=== PATIENT | female | born 1970 | race Caucasian/White ===

== ENCOUNTER 2018-06-11 21:46 | Emergency (ER) | payer BC ==
[2018-06-11 22:19] VITALS: BP 162/68
--- NOTE | 2018-06-11 22:46 | ED Physician Documentation ---
General Adult - HISTORIAN Historian: patient - HPI Stated Complaint: Dizziness Chief Complaint: General Adult Further Comments: yes (48 year old female patient presents with complains of nausea and diarrhea; ears feeling full, dizziness. Patient has been on Augmentin for 2 days for a sinus infection. Reports GI symptoms started 2 days ago. C/O left arm discomfort for the past few months.) - ROS CONST: recent illness (sinus infection) EYES/ENT: sore throat, nasal drainage, nasal congestion, other (ear ache) CVS/RESP: none GI/: nausea, diarrhea. denies: abdominal pain, problems urinating, vomiting MS/SKIN/LYMPH: none NEURO/PSYCH: headache. denies: anxiety, depression - PAST HX Past History: hypertension Other History: diabetes Type 2, other (hypothyroidism) Allergies/Adverse Reactions: Allergies Allergy/AdvReac Type Severity Reaction Status Date / Time No Known Allergies Allergy Verified 06/11/18 22:20 Home Medications: Ambulatory Orders Medication Instructions Recorded Levofloxacin [Levaquin] 500 mg PO DAILY #10 tablet 06/11/18 Levothyroxine Sodium [Synthroid] 1 tab PO DAILY 06/11/18 Lisinopril [Zestril] 1 tab PO DAILY 06/11/18 Metformin HCl [Glucophage] 1 tab PO BID 06/11/18 Metoprolol Tartrate [Lopressor] 1 tab PO DAILY 06/11/18 Pioglitazone HCl [Actos] 1 tab PO DAILY 06/11/18 Pioglitazone HCl [Actos] 1 tab PO DAILY 06/11/18 gliPIZIDE [Glucotrol] 1 tab PO DAILY 06/11/18 - SOCIAL HX Smoking History: non-smoker - FAMILY HX Family History: No - VITAL SIGNS Vital Signs: Vital Signs Temp Pulse Resp BP Pulse Ox 96.8 F L 87 16 162/68 98 06/11/18 22:32 06/11/18 22:32 06/11/18 22:32 06/11/18 22:32 06/11/18 22:32 - REVIEWED ASSESSMENTS Nursing Assessment Reviewed: Yes Vitals Reviewed: Yes Progress - Progress Progress: Will stop augmentin; patient not tolerating the GI side effects ED Results Lab/Radiology - Orders Orders: ED Orders Category Date Time Status Chem Sticks Med 06/11/18 22:00 Discontinued 1 each PRN General Adult Physical Exam - PHYSICAL EXAM GENERAL APPEARANCE: mild distress EENT: eye inspection normal, pharynx normal, no signs of dehydration, KELVIN, no nystagmus, TM's nml, other (tenderness with palpation of all frontal, maxillary and ethmoid sinus). No: pharyngeal erythema, purulent nasal drainage RESPIRATORY: no resp distress, chest non-tender, breath sounds normal CVS: reg rate & rhythm, heart sounds normal, equal pulses, no murmur, no gallop, PMI nml, no JVD, no friction rub, 24 ABDOMEN: soft, no organomegaly, normal bowel sounds, no abdominal bruit, no distension, other (MORBID Obesity) SKIN: normal color, warm/dry, NR, INT, PAL, DR EXTREMITIES: non-tender, normal range of motion, no evidence of injury, no edema, J, A AUXILIARY NEURO: oriented X3, CN's nml as tested, motor nml, sensation nml, mood/affect nml Discharge Clincal Impression: Side effect of medication Sinusitis Qualifiers: Sinusitis location: pansinusitis Chronicity: acute Recurrence: non-recurrent Qualified Code(s): J01.40 - Acute pansinusitis, unspecified Prescriptions: Levofloxacin [Levaquin] 500 mg PO DAILY #10 tablet Referrals: Primary Doctor,No [Primary Care Provider] - 2 Days Additional Instructions: You may want to try Vicks rub on your chest and/or feet Cough drops as needed for cough and sore throat. Increase your fluid intake juices, hot tea, non-caffeinated beverages Use a humidifier in the room where you sleep. You can also sit in a steam filled bathroom 1-2 times a day. Tylenol or Ibuprofen as needed for fever, pain and body aches. Start daily allergy medication such as Claritin, Haley or Zyrtec. You may benefit from the use of a netti pot follow package instructions. See your primary care doctor after you have completed your antibiotic if you symptoms have not resolved. Many times it takes multiple rounds of antibiotics to resolve a sinus infection. 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
== END 2018-06-11 22:32 | disposition home or self-care (01) ==
LOC: ED 21:46
DX: J01.40 Acute pansinusitis, unspecified (principal); T88.7XXA Unspecified adverse effect of drug or medicament, initial encounter; Y92.9 Unspecified place or not applicable; Y93.9 Activity, unspecified; Y99.9 Unspecified external cause status

== ENCOUNTER 2018-07-24 00:14 | Emergency (ER) | payer SELFPAY ==
--- NOTE | 2018-07-24 00:17 | ED Physician Documentation ---
General Adult - HISTORIAN Historian: patient - HPI Stated Complaint: DM, low blood sugar at home Chief Complaint: General Adult Onset: minutes Timing: still present Severity: moderate Further Comments: yes (Pt is a 48 yo female with DM who found her fingstick blood glucose at home was 48. Pt has been drinking cranberry juice and other sweet juices since measuring her blood glucose. Pt has secondary ongoing problem of pain in her R rear thigh which she attributes to muscle spasm, and which makes it difficult for her to sleep.) - ROS CONST: other (malaise) EYES/ENT: none CVS/RESP: none GI/: nausea MS/SKIN/LYMPH: other (R thigh pain) NEURO/PSYCH: other (weakness) - PAST HX Past History: other (DM, chronic pain, thyroid d/o, anxiety) Surgeries/Procedures: other (ortho surgery) Allergies/Adverse Reactions: Allergies Allergy/AdvReac Type Severity Reaction Status Date / Time No Known Allergies Allergy Verified 07/24/18 01:45 Home Medications: Ambulatory Orders Medication Instructions Recorded Levothyroxine Sodium [Synthroid] 50 mcg PO DAILY 06/11/18 Lisinopril [Zestril] 10 mg PO DAILY 06/11/18 Metformin HCl [Glucophage] 1,000 mg PO BID 06/11/18 Metoprolol Tartrate [Lopressor] 1 tab PO BID 06/11/18 Pioglitazone HCl [Actos] 1 tab PO DAILY 06/11/18 Glimepiride [Amaryl] 4 mg PO DAILY 07/24/18 - SOCIAL HX Smoking History: non-smoker - FAMILY HX Family History: No (unk) - VITAL SIGNS Vital Signs: Vital Signs Temp Pulse Resp BP Pulse Ox 162/68 06/11/18 22:32 - REVIEWED ASSESSMENTS Nursing Assessment Reviewed: Yes Vitals Reviewed: Yes Progress - Progress Progress: NS 500 cc IVF Diazepam 10 mg po Thigh pain resolved Macrobid 100 mg po in ER. For UTI Macrobid 100 mg. Take one every 12 hours for 7 days. For muscle spasm Rx Diazepam 5 mg. Take one at bedtime as needed for occasional muscle spasm. f/u pcp. General Adult Physical Exam - PHYSICAL EXAM GENERAL APPEARANCE: mild distress EENT: pharynx normal NECK: normal inspection, supple RESPIRATORY: no resp distress, chest non-tender, breath sounds normal CVS: reg rate & rhythm, heart sounds normal ABDOMEN: soft, no organomegaly, normal bowel sounds BACK: normal inspection, no CVA tenderness SKIN: warm/dry, normal color EXTREMITIES: other (tenderness dorsal thigh, no palpable cords, no swelling) NEURO: oriented X3, motor nml, sensation nml Discharge Clincal Impression: Hypoglycemic episode, low magnesium level, muscle spasm R thigh, UTI Referrals: Primary Doctor,No [Primary Care Provider] - Condition: Stable Disposition: 01 HOME, SELF-CARE Decision to Admit: NO Decision Time: 22:45
[2018-07-24] MEDS ORDERED: 0.9 % SODIUM CHLORIDE 500 ML IV ONE (00:24)
[2018-07-24 00:44] LABS: MEAN CORPUSCULAR HEMOGLOBIN 29.3 pg (28.0-34.0)
[2018-07-24 00:45] LABS: BASOPHILS % 0.6 (0.0-1.5); EOSINOPHILS % 3.4 % (0.0-6.8); MONOCYTES % 8.1 % (0.0-11.0); NEUTROPHILS # 6.9 # k/uL (1.4-7.7)
[2018-07-24 00:46] LABS: eGFR (Non-African) > 60
[2018-07-24] MEDS ORDERED: DIAZEPAM 5 MG TABLET PO ONE (01:03)
[2018-07-24] MEDS ORDERED: NITROFURANTOIN 100 MG CAPSULE PO ONE (02:06)
[2018-07-24 03:55] VITALS: BP 133/59
[2018-07-24 08:39] LABS: APPEARANCE,URINE CLOUDY (CLEAR); COLOR,URINE YELLOW (YELLOW); OCCULT BLOOD,URINE NEGATIVE (NEGATIVE); PH URINE 5.5 (5.0 - 8.0); UROBILINOGEN URINE 0.2 Eu (0.2-1.0)
== END 2018-07-24 02:40 | disposition home or self-care (01) ==
LOC: ED 00:14
DX: E16.2 Hypoglycemia, unspecified (principal); E83.42 Hypomagnesemia; N39.0 Urinary tract infection, site not specified; M62.838 Other muscle spasm
CPT/HCPCS: 80053; 81002; 83735; 85025; 85379; 87086; J7060; 96365; 99284; S1016

== ENCOUNTER 2018-10-31 23:33 | Emergency (ER) | payer SELFPAY ==
--- NOTE | 2018-10-31 23:51 | ED Physician Documentation ---
General Adult - HISTORIAN Historian: patient - HPI Stated Complaint: cough Chief Complaint: General Adult Onset: other (weeks) Timing: still present Severity: moderate Further Comments: yes (Pt is a 48 yo female with persistent cough. Pt was tx'd for sinusitis last month. Pt has hx bronchitis. Pt's cough is keeping her awake at night. No fever.) - ROS CONST: no problems EYES/ENT: none CVS/RESP: cough GI/: none MS/SKIN/LYMPH: none - PAST HX Past History: other (DM, anxiety, HTN, thyroid dz, ) Surgeries/Procedures: , other (ortho surgery) Allergies/Adverse Reactions: Allergies Allergy/AdvReac Type Severity Reaction Status Date / Time No Known Allergies Allergy Verified 07/24/18 01:45 Home Medications: Ambulatory Orders Medication Instructions Recorded Levothyroxine Sodium [Synthroid] 50 mcg PO DAILY 06/11/18 Lisinopril [Zestril] 10 mg PO DAILY 06/11/18 Metformin HCl [Glucophage] 1,000 mg PO BID 06/11/18 Metoprolol Tartrate [Lopressor] 1 tab PO BID 06/11/18 Pioglitazone HCl [Actos] 1 tab PO DAILY 06/11/18 Glimepiride [Amaryl] 4 mg PO DAILY 07/24/18 - SOCIAL HX Smoking History: non-smoker - FAMILY HX Family History: No - VITAL SIGNS Vital Signs: Vital Signs Temp Pulse Resp BP Pulse Ox 133/59 07/24/18 02:40 - REVIEWED ASSESSMENTS Nursing Assessment Reviewed: Yes Vitals Reviewed: Yes Progress - Progress Progress: Rx Azithromycin (250 mg). Take one tablet by mouth once daily for 5 days. Rx Robitussin AC (with codeine). Take 10 ml by mouth every 4 to 6 hrs as needed for cough. Disp: 280 ml. Continue to use your steroid inhaler as directed. General Adult Physical Exam - PHYSICAL EXAM GENERAL APPEARANCE: moderate distress EENT: pharynx normal NECK: normal inspection, supple RESPIRATORY: no resp distress, chest non-tender, breath sounds normal, other (cough) CVS: reg rate & rhythm, heart sounds normal BACK: normal inspection, no CVA tenderness SKIN: warm/dry, normal color EXTREMITIES: non-tender, normal range of motion, no evidence of injury NEURO: oriented X3, motor nml, sensation nml Discharge Clincal Impression: Persistent cough Referrals: Primary Doctor,No [Primary Care Provider] - Condition: Stable Disposition: 01 HOME, SELF-CARE Decision to Admit: NO Decision Time: 00:05
[2018-10-31] MEDS ORDERED: AZITHROMYCIN 250 MG TABLET PO ONE (23:57)
[2018-10-31] MEDS ORDERED: GUAIFENESIN/CODEINE 10 ML S/F LIQUID DOSE CUP PO STA (23:58)
[2018-11-01 00:26] VITALS: BP 164/66
== END 2018-11-01 00:25 | disposition home or self-care (01) ==
LOC: ED 23:33
DX: R05 Cough (principal)
CPT/HCPCS: 99282; 99283

== ENCOUNTER 2019-02-16 07:22 | Emergency (ER) | payer SELFPAY ==
--- NOTE | 2019-02-16 07:36 | ED Physician Documentation ---
General Adult - HISTORIAN Historian: patient - HPI Stated Complaint: cough and congestion Chief Complaint: Cough/ Upper Respiratory Onset: days ago (7) Timing: still present Severity: mild Further Comments: yes (she reports cough and sinus congestion x 7 days - she thinks she has had a fever on and off. She has a cough that is not productive although she has not slept well in 4 days. She is taking OTC meds with mild relief. She has fatigue. She has sinus pain and pressure . She states she has had some left over cough meds and this was helping her with her cough) - ROS CONST: fever EYES/ENT: nasal drainage, nasal congestion CVS/RESP: cough. denies: chest pain, shortness of breath GI/: none MS/SKIN/LYMPH: denies: rash NEURO/PSYCH: headache - PAST HX Past History: other (hypothyroidism ) Immunizations: UTD Allergies/Adverse Reactions: Allergies Allergy/AdvReac Type Severity Reaction Status Date / Time No Known Allergies Allergy Verified 02/16/19 07:46 Home Medications: Ambulatory Orders Medication Instructions Recorded Levothyroxine Sodium [Synthroid] 50 mcg PO DAILY 06/11/18 Lisinopril [Zestril] 10 mg PO DAILY 06/11/18 Metformin HCl [Glucophage] 1,000 mg PO BID 06/11/18 Metoprolol Tartrate [Lopressor] 1 tab PO BID 06/11/18 Pioglitazone HCl [Actos] 1 tab PO DAILY 06/11/18 Glimepiride [Amaryl] 4 mg PO DAILY 07/24/18 Meloxicam 15 mg PO BID PRN 02/16/19 Tramadol HCl [Ultram] 50 mg PO Q6H PRN 02/16/19 Trazodone HCl 50 mg PO HS 02/16/19 - SOCIAL HX Smoking History: non-smoker Alcohol Use: none Drug Use: none - FAMILY HX Family History: No - VITAL SIGNS Vital Signs: Vital Signs Temp Pulse Resp BP Pulse Ox 164/66 11/01/18 00:24 - REVIEWED ASSESSMENTS Nursing Assessment Reviewed: Yes Vitals Reviewed: Yes General Adult Physical Exam - PHYSICAL EXAM GENERAL APPEARANCE: no distress EENT: eye inspection normal, pharynx normal, no signs of dehydration, TM's nml, papilledema, other (sinus pain on frontal ) RESPIRATORY: no resp distress, chest non-tender, breath sounds normal CVS: reg rate & rhythm, heart sounds normal, equal pulses, no murmur ABDOMEN: soft, no distension BACK: normal inspection, no CVA tenderness SKIN: warm/dry, normal color EXTREMITIES: non-tender, normal range of motion, no evidence of injury, no edema NEURO: oriented X3 Discharge Clincal Impression: Persistent cough Sinusitis Qualifiers: Sinusitis location: frontal Chronicity: acute Recurrence: not specified as recurrent Qualified Code(s): J01.10 - Acute frontal sinusitis, unspecified Referrals: Primary Doctor,No [Primary Care Provider] - 2 Days Comments: 1. Augmentin 875/125 take 1 by mouth twice daily x 10 days 2. Tessalon Pearls 100 mg take 1 by mouth every 8 hours as needed for cough 3. Flonase nasal spray 1 spray in each nostril daily 4. Increase water intake 5. Salt water gargles 6. OTC meds as directed as needed for fever or pain 7. See your PCP in 2 days if no improvement 8. Return to ER for any increasing concerns Condition: Stable Disposition: 01 HOME, SELF-CARE Decision to Admit: NO Date of Decison to Admit: 02/16/19 Decision Time: 07:50
[2019-02-16 07:46] VITALS: BP 182/66
== END 2019-02-16 07:58 | disposition home or self-care (01) ==
LOC: ED 07:22
DX: J01.10 Acute frontal sinusitis, unspecified (principal); R05 Cough
CPT/HCPCS: 99282; 99283

== ENCOUNTER 2019-04-11 20:04 | Observation (INO) | payer SELFPAY ==
--- NOTE | 2019-04-11 20:42 | ED Physician Documentation ---
General Adult - HISTORIAN Historian: patient - HPI Chief Complaint: Dyspnea Additional Information: Patient states that she has a headache, nasal congestion, has developed a cough that is nonproductive, no chest pain. Has felt hot and cold. No other family member ill. Has had some diarrhea, no blood noted. Is taking metaformin which causes her stools to get lose from time to time. Feels weak. No wheezing noted. No orthopnea noted. No hx of CHF. Onset: days ago Timing: still present - ROS CONST: fever (?), chills (??) CVS/RESP: shortness of breath, cough. denies: chest pain - PAST HX Past History: denies: asthma, COPD, hypertension Other History: diabetes Type 2, other (levothyorxine) Surgeries/Procedures: (x2), other (si x3, Banks's cyst) Immunizations: referred to PCP Allergies/Adverse Reactions: Allergies Allergy/AdvReac Type Severity Reaction Status Date / Time No Known Allergies Allergy Verified 04/28/19 04:39 Home Medications: Ambulatory Orders Medication Instructions Recorded Levothyroxine Sodium [Synthroid] 50 mcg PO DAILY 06/11/18 Metformin HCl [Glucophage] 1,000 mg PO BID 06/11/18 Metoprolol Tartrate [Lopressor] 1 tab PO BID 06/11/18 Pioglitazone HCl [Actos] 1 tab PO DAILY 06/11/18 Glimepiride [Amaryl] 4 mg PO DAILY 07/24/18 Meloxicam 15 mg PO BID PRN 02/16/19 Tramadol HCl [Ultram] 50 mg PO Q6H PRN 02/16/19 Trazodone HCl 50 mg PO HS 02/16/19 Codeine Phosphate/Guaifenesin 10 ml PO Q6 PRN #180 ml 04/11/19 [Codeine-Guaifen 10-100 mg/5 ml] Albuterol Sulfate [Albuterol 1 - 2 inh IH Q4 PRN #1 hfa.aer.ad 04/12/19 Sulfate Hfa] Glimepiride [Amaryl] 4 mg PO 0730 tablet 04/12/19 Levofloxacin [Levaquin] 750 mg PO DAILY #7 tablet 04/12/19 metFORMIN HCl [Glucophage] 1,[place] [address] tablet 04/12/19 - SOCIAL HX Smoking History: non-smoker Alcohol Use: none Drug Use: none - FAMILY HX Family History: Yes (DM) - VITAL SIGNS Vital Signs: Vital Signs Temp Pulse Resp BP Pulse Ox 182/66 02/16/19 07:58 - REVIEWED ASSESSMENTS Nursing Assessment Reviewed: Yes Vitals Reviewed: Yes Progress - Progress Progress: 22:02 Patient has not been coughing much, awaiting lab results. 22:44 Patient states that she is feeling some better. SAo2 does drops to 88-92 on RA. With 2 literes of oxygen comes up to 98%. Patient denies that she has had to use oxygen in the past. 23:22 Getting ready to discharge patient and her SAo2 dropped to 85% for a short period of time. Will admit to obs. General Adult Physical Exam - PHYSICAL EXAM GENERAL APPEARANCE: mild distress EENT: ENT inspection normal, pharynx normal, no signs of dehydration NECK: normal inspection, thyroid normal, supple. No: lymphadenopathy, stiff neck RESPIRATORY: no resp distress, chest non-tender, rhonchi (few faint on the left posterior) CVS: reg rate & rhythm, heart sounds normal, equal pulses, no murmur, no gallop ABDOMEN: soft, no organomegaly, normal bowel sounds, no abdominal bruit, other (morbid obesity) BACK: normal inspection, no CVA tenderness SKIN: warm/dry, normal color EXTREMITIES: non-tender, edema (trace) NEURO: oriented X3, CN's nml as tested, motor nml, sensation nml, mood/affect nml, cognition normal Discharge Clincal Impression: Bronchitis Condition: Stable Disposition: ADMITTED INPATIENT Decision to Admit: [id number] Date of Decison to Admit: 04/11/19 Decision Time: 23:23
[2019-04-11 21:33] LABS: BASOPHILS % 0.5 % (0.0-1.5); NEUTROPHILS # 6.9 # k/uL (1.4-7.7); eGFR (Non-African) > 60
[2019-04-11 21:34] LABS: MAGNESIUM 1.5 mIU/l (1.6-2.3)
--- NOTE | 2019-04-11 22:05 | Diagnostic Imaging Report ---
HAMLET KHAN [facility] [id number] [facility] [address] [place], [place]. [address] Report Submission Date: Apr 11, 2019 9:52:56 PM CDT Patient Study Name: LATISHA WALLACE Date: Apr 11, 2019 9:22:24 PM CDT Modality Type: DX Gender: F Description: ABD SERIES PA CHEST : 66 Institution: [facility] Physician: HAMLET KHAN Abdomen series with single view chest History: Chest pain Findings: Pulmonary vascular congestion and bilateral mid to lower lung reticular opacities are observed without confluent infiltrate or pleural effusion. Heart size is normal. Mediastinal widening is present. Upright and supine abdomen radiographs reveal morbid obesity, normal bowel gas pattern, and L4-5 degenerative disc disease. There is no evidence of bowel obstruction, constipation, or free air. Impression: 1. Superior mediastinal widening is nonspecific given obesity. 2. Pulmonary vascular congestion and possibly mild pulmonary edema versus bronchitis. 3. Normal bowel gas pattern. Electronically signed on Apr 11, 2019 9:52:56 PM CDT by: Jj GAMEZ
[2019-04-11] MEDS ORDERED: IPRATROPIUM/ALBUTEROL SULFATE 3 ML AMPUL.NEB NEB ONE (22:43)
[2019-04-11] MEDS ORDERED: traZODone HCL 50 MG TABLET PO PRN (23:40)
[2019-04-12] MEDS ORDERED: levoFLOXacin 500 MG TABLET ONE (00:03)
[2019-04-12 01:35] VITALS: BMI 49.4
[2019-04-12] MEDS ORDERED: traZODone HCL 50 MG TABLET ONE (02:14)
[2019-04-12] MEDS: IPRATROPIUM/ALBUTEROL SULFATE 3 ML AMPUL.NEB NEB SCH ×3 (05:58→09:11)
[2019-04-12] MEDS ORDERED: GLIMEPIRIDE 2 MG TABLET PO SCH (07:30)
[2019-04-12] MEDS ORDERED: metFORMIN HCl 500 MG TABLET PO SCH (07:30)
[2019-04-12] MEDS ORDERED: GLIMEPIRIDE 2 MG TABLET PO ONE (07:39)
[2019-04-12 07:54] LABS: APPEARANCE,URINE CLEAR (CLEAR); COLOR,URINE YELLOW (YELLOW); OCCULT BLOOD,URINE NEGATIVE (NEGATIVE); PH URINE 5.5 (5.0 - 8.0); UROBILINOGEN URINE 0.2 Eu (0.2-1.0)
[2019-04-12] MEDS ORDERED: METOPROLOL TARTRATE 25 MG TABLET PO SCH (09:00)
[2019-04-12] MEDS ORDERED: PIOGLITAZONE HCL 30 MG TABLET PO SCH (09:00)
[2019-04-12] MEDS ORDERED: GLIMEPIRIDE 4 MG PO SCH (09:00)
[2019-04-12] MEDS ORDERED: PATIENT OWN MED 1 EACH EACH SQ SCH (09:00)
[2019-04-12] MEDS ORDERED: IPRATROPIUM BROMIDE 0.5 MG/2.5 ML AMPUL.NEB NEB ONE (09:20)
[2019-04-12 10:19] VITALS: BP 111/52
--- NOTE | 2019-04-12 13:12 | Discharge Summary ---
Discharge Summary - Discharge [facility] Admission Date: 04/11/19 Discharge Date: 04/12/19 Discharge To: Home History of Present Illness: Patient was admitted observation through the ER for Bronchitis. She presented to the ER with a headache, nasal congestion, developed a cough that is nonproductive, no chest pain. Has felt hot and cold. No other family member ill. Had some diarrhea, no blood noted. Is taking Metformin which causes her stools t o get lose from time to time. Feels weak. No wheezing noted. No orthopnea noted. No hx of CHF. Condition at Discharge: Stable Home Medications: Ambulatory Orders Medication Instructions Recorded Levothyroxine Sodium [Synthroid] 50 mcg PO DAILY 06/11/18 Metformin HCl [Glucophage] 1,000 mg PO BID 06/11/18 Metoprolol Tartrate [Lopressor] 1 tab PO BID 06/11/18 Pioglitazone HCl [Actos] 1 tab PO DAILY 06/11/18 Glimepiride [Amaryl] 4 mg PO DAILY 07/24/18 Meloxicam 15 mg PO BID PRN 02/16/19 Tramadol HCl [Ultram] 50 mg PO Q6H PRN 02/16/19 Trazodone HCl 50 mg PO HS 02/16/19 Codeine Phosphate/Guaifenesin 10 ml PO Q6 PRN #180 ml 04/11/19 [Codeine-Guaifen 10-100 mg/5 ml] Albuterol Sulfate [Albuterol 1 - 2 inh IH Q4 PRN #1 hfa.aer.ad 04/12/19 Sulfate Hfa] Glimepiride [Amaryl] 4 mg PO 0730 tablet 04/12/19 Levofloxacin [Levaquin] 750 mg PO DAILY #7 tablet 04/12/19 metFORMIN HCl [Glucophage] 1,[place] [address] tablet 04/12/19 Consultations this Visit: None Procedures this Visit: None Allergies/Adverse Reactions: Allergies Allergy/AdvReac Type Severity Reaction Status Date / Time No Known Allergies Allergy Verified 02/16/19 07:46 Patient Problems: Current Active Problems Problem Status Onset Bronchitis Acute Hyperkalemia Acute Discharge Summary: Patient was admitted observation for bronchitis and treated with PO Levaquin, breathing treatments and supplemental oxygen. Nursing was able to titrate patient back down to room air with a saturation of 95%. Patient is feeling much better- she was eating (had a large plate of Fettdanny Love)- discussed diet and high carbs with diabetes. No shortness of breath or cough noted. Patient feels much better and feels ready to go home. Hospital Course: Oral Levaquin, Breathing treatments, Supplemental Oxygen - Final Diagnosis (1) Bronchitis Problems: Use incentive spirometer every hour while awake, oral Levaquin 750mg PO daily for 5 days, Albuterol inhaler, Robitussin DAC Right or Left: Right (2) Hyperkalemia Problems: Hold lisinopril- follow up with pcp this week Right or Left: Right
== END 2019-04-12 13:10 | disposition home or self-care (01) ==
LOC: ED 20:04 → SOUTH 23:19
PROVIDERS: ADMIT Family Medicine; ATTEND Family Medicine
DX: J20.9 Acute bronchitis, unspecified (principal); E87.5 Hyperkalemia
CPT/HCPCS: 36415; 74022; 80053; 81002; 83735; 85025; 93005; 99218; G0378; S1016

== ENCOUNTER 2019-07-11 12:43 | Emergency (ER) | payer OTHER ==
[2019-06-21 10:11] VITALS: BP 101/59
== END 2019-07-12 00:10 ==
LOC: ED 12:43
DX: M54.6 Pain in thoracic spine (principal)
CPT/HCPCS: 99282

== ENCOUNTER 2019-10-07 01:12 | Emergency (ER) | payer OTHER ==
[2019-10-07] MEDS ORDERED: 0.9 % SODIUM CHLORIDE 500 ML IV ONE (01:29)
[2019-10-07] MEDS ORDERED: INSULIN REGULAR, HUMAN 100 UNIT/ML 10ML VIAL IV ONE (01:29)
[2019-10-07 01:30] VITALS: BP 152/73
--- NOTE | 2019-10-07 02:59 | ED Physician Documentation ---
General Adult - HPI Stated Complaint: elevated blood sugar level Chief Complaint: General Adult Additional Information: 49 year old female presents with c/o high blood sugar; she states that around 6p her blood sugar was 60 so she ate some diabetic cookies and then she ate some baked Ziti; and woke up around midnight and states blood sugar was > 400 Onset: hours Timing: still present Severity: moderate Modifying Factors: High carb intake - ROS CONST: no problems EYES/ENT: none CVS/RESP: none GI/: none MS/SKIN/LYMPH: none NEURO/PSYCH: headache - PAST HX Past History: hypertension, other (GEORGE) Other History: diabetes Type 2 Immunizations: UTD Allergies/Adverse Reactions: Allergies Allergy/AdvReac Type Severity Reaction Status Date / Time No Known Allergies Allergy Verified 06/20/19 04:09 Home Medications: Ambulatory Orders Medication Instructions Recorded Levothyroxine Sodium [Synthroid] 50 mcg PO DAILY 06/11/18 Metoprolol Tartrate [Lopressor] 1 tab PO BID 06/11/18 Pioglitazone HCl [Actos] 1 tab PO DAILY 06/11/18 Meloxicam 15 mg PO PRN PRN 02/16/19 Tramadol HCl [Ultram] 50 mg PO Q6H PRN 02/16/19 Cyanocobalamin [Vitamin B-12] 1,000 mcg PO DAILY 06/20/19 Exenatide [Byetta] 10 mcg SQ BID 06/20/19 Glimepiride [Amaryl] 8 mg PO DAILY 06/20/19 Magnesium Oxide [Magnesium] 400 mg PO DAILY 06/20/19 Trazodone HCl 100 mg PO HS 06/20/19 amLODIPine BESYLATE [Norvasc] 2.5 mg PO DAILY 06/20/19 Insulin Degludec [Tresiba 8 unit SQ DAILY #1 insuln.pen 06/21/19 Flextouch U-100] Insulin Regular, Human [NovoLIN R] 0 - 12 unit SQ CHEMX3 vial 06/21/19 - SOCIAL HX Smoking History: non-smoker Alcohol Use: none Drug Use: none - FAMILY HX Family History: No - VITAL SIGNS Vital Signs: Vital Signs Temp Pulse Resp BP Pulse Ox 97.1 F L 92 H 18 152/73 99 10/07/19 01:22 10/07/19 01:22 10/07/19 01:22 10/07/19 01:22 10/07/19 01:22 - REVIEWED ASSESSMENTS Nursing Assessment Reviewed: Yes Vitals Reviewed: Yes Progress - Progress Progress: Venous pH normal Discussed with patient the importance of watching her diet; she states that she eats a low carb diet; explained that Pasta Ziti is not a good choice. Patient is morbidly obese; does not appear to be on low carb diet but explained the importance of being compliant ED Results Lab/Radiology - Orders Orders: ED Orders Category Date Time Status CBC/PLATELET/DIFF Routine Lab 10/07/19 01:50 Received CMP Routine Lab 10/07/19 01:50 Received 0.9 % Sodium Chloride [Normal Saline] 500 ml Med 10/07/19 01:29 Discontinued IV NOW Insulin Regular, Human [NovoLIN R] Med 10/07/19 01:29 Discontinued 10 unit IV NOW ONE General Adult Physical Exam - PHYSICAL EXAM GENERAL APPEARANCE: no distress EENT: eye inspection normal, ENT inspection normal, pharynx normal, KELVIN, TM's nml NECK: normal inspection, supple RESPIRATORY: breath sounds normal CVS: heart sounds normal, equal pulses ABDOMEN: other (Morbidly obese) SKIN: warm/dry, normal color EXTREMITIES: normal range of motion NEURO: oriented X3, CN's nml as tested, motor nml, sensation nml, mood/affect nml, cognition normal Discharge Clincal Impression: Hyperglycemia due to type 2 diabetes mellitus, Morbid obesity Referrals: Primary Doctor,No [Primary Care Provider] - 2 Days Additional Instructions: Decrease carbs and increase protein Continue taking insulin as directed Follow up with PCP next week for re-evaluation Condition: Stable Disposition: 01 HOME, SELF-CARE Decision to Admit: NO Decision Time: 03:00
[2019-10-07 07:28] LABS: BASOPHILS % 0.6 % (0.0-1.5); NEUTROPHILS # 7.6 # k/uL (1.4-7.7); eGFR (Non-African) > 60
== END 2019-10-07 02:59 | disposition home or self-care (01) ==
LOC: ED 01:12
DX: E11.65 Type 2 diabetes mellitus with hyperglycemia (principal); E66.01 Morbid (severe) obesity due to excess calories
CPT/HCPCS: 80053; 85025; 96361; 96374; 99282; 99284; J1815; J7060; 36415; 36600; 82803; S1016